=== PATIENT | male | born 1980 | race Caucasian/White ===

== ENCOUNTER 2018-06-19 13:09 | Emergency (ER) | payer OTHER ==
[2018-06-19] MEDS: HYDROCODONE/APAP (5/325) TAB PO (13:47)
== END 2018-06-19 15:33 | disposition home or self-care (01) ==
LOC: FTE 13:09
DX: M54.41 Lumbago with sciatica, right side (principal); E11.9 Type 2 diabetes mellitus without complications; Z95.1 Presence of aortocoronary bypass graft
CPT/HCPCS: 72100; 99283